=== PATIENT | male | born 1980 | race Two or more races ===

== ENCOUNTER 2022-07-07 12:27 | Emergency (ER) | payer OTHER ==
[~2022-07-07] VITALS: Ht 170.2 cm; Wt 74.4 kg
[2022-07-07] MEDS ORDERED: ROSUVASTATIN CA20 MG PO (13:03)
[2022-07-07] MEDS ORDERED: CYCLOBENZAPRINE10 MG PO (13:04)
== END 2022-07-07 16:57 ==
LOC: ER 12:27
DX: M79.661 Pain in right lower leg (principal)